=== PATIENT | male | born 1935 | race Caucasian/White ===

== ENCOUNTER → 2016-08-19 | Outpatient (CLI) | payer MEDICARE, BC ==
[2016-08-19 09:17] LABS: ALBUMIN SERUM 4.4 g/dL (3.5-5.0); BILIRUBIN,TOTAL 0.8 mg/dL (0.2-2.0); BUN/CREATININE RATIO 21.87; CALCIUM SERUM 9.1 mg/dL (8.4-10.2); CREATININE SERUM 1.6 mg/dL (0.6-1.4); GLOM FILT RATE Estimated 40.1 mL/min (>60); POTASSIUM 4.7 mmol/L (3.5-5.1); PROTEIN TOTAL SERUM 7.3 g/dL (6.0-8.3)
== END | disposition home or self-care (01) ==
LOC: SLABONLY 08:18
PROVIDERS: Internal Medicine Endocrinology, Diabetes & Metabolism
DX: E11.9 Type 2 diabetes mellitus without complications (principal)
CPT/HCPCS: 36415; 80053; 80061; 82043; 82570; 83036

== ENCOUNTER → 2016-11-25 | Outpatient (CLI) | payer MEDICARE, BC ==
[2016-11-25 09:31] LABS: CALCIUM SERUM 9.1 mg/dL (8.4-10.2); CREATININE SERUM 1.5 mg/dL (0.6-1.4); GLOM FILT RATE Estimated 43.4 mL/min (>60); POTASSIUM 4.9 mmol/L (3.5-5.1)
== END | disposition home or self-care (01) ==
LOC: SLABONLY 08:54
PROVIDERS: Internal Medicine Endocrinology, Diabetes & Metabolism
DX: E11.9 Type 2 diabetes mellitus without complications (principal); E78.4 Other hyperlipidemia
CPT/HCPCS: 36415; 80048; 83036